=== PATIENT | male | born 1950 | race Caucasian/White ===

== ENCOUNTER 2019-03-22 14:05 | Emergency (ER) | payer OTHER ==
--- NOTE | 2019-03-22 14:40 | EDM.PDOC ---
ED HPI GENERAL MEDICAL PROBLEM - General Chief Complaint: Gastrointestinal Problem Stated Complaint: hematachizea Time Seen by Provider: 03/22/19 14:19 Source of Information: Reports: Patient, Old Records, RN History Limitations: Reports: No Limitations - History of Present Illness INITIAL COMMENTS - FREE TEXT/NARRATIVE: 68 yr male presents with blood to stool States he had a colonoscopy the end of january because of this same problem and Dr Alvarez's notes show multiple non-bleeding colonic angiodysplastic lesions, treated wtih APC. Recommend repeat colonoscopy adn Argon plasma coagulation if rectal bleeding starts again. Pt contacted the [facility] clinic/offic for Dr Alvarez and was told the provider is out of the office until the end of March. Was told to report to the nearest ER for a referral for this. Pt is alert and talkative, eating well, no nausea, no dizziness, no lightheadedness, no shortness of breath and no chest pain. Hx of Malignant neoplasm of prostaten 2003: stable ( radiation finished last year in April), and hypertension controlled with medication, diverticular disease 2007 and underwent colon resection, colovesical fistula and previous heavy use of NSAID ( not using anymore). He has had previous provider appointments in [facility] and would like a referral for this blood to the stool for [facility] Kindly refer to pt notes in [place], [place] files for the colonoscopy and plan per Dr Alvarez. ED ROS GENERAL - Review of Systems Review Of Systems: See Below Constitutional: Reports: No Symptoms HEENT: Reports: Glasses Respiratory: Reports: No Symptoms Cardiovascular: Reports: No Symptoms GI/Abdominal: Reports: Bloody Stool, Hematochezia, Melena. Denies: Abdominal Pain, Constipation, Nausea, Vomiting : Reports: Other (hx of prostate cancer) Musculoskeletal: Reports: No Symptoms Skin: Reports: No Symptoms Neurological: Reports: No Symptoms ED EXAM, GI/ABD - Physical Exam Exam: See Below Exam Limited By: No Limitations General Appearance: Alert, No Apparent Distress Ears: Hearing Grossly Normal Nose: Normal Inspection, Normal Mucosa Throat/Mouth: Normal Inspection, Normal Voice, No Airway Compromise Head: Atraumatic, Normocephalic Neck: Normal Inspection, Supple, Non-Tender, Full Range of Motion Respiratory/Chest: No Respiratory Distress, Lungs Clear, Normal Breath Sounds Cardiovascular: Normal Peripheral Pulses, Regular Rate, Rhythm, No Edema GI/Abdominal Exam: Normal Bowel Sounds, Soft, Non-Tender. No: Guarding, Tender , Mass Back Exam: Normal Inspection, Full Range of Motion Extremities: Normal Inspection, Normal Range of Motion, Normal Capillary Refill Neurological: Alert, Oriented, Normal Cognition Psychiatric: Normal Affect, Normal Mood Skin Exam: Warm, Dry, Normal Color Lymphatic: No Adenopathy Course - Orders/Labs/Meds Labs: Laboratory Tests 03/22/19 03/22/19 Range/Units 14:30 14:30 WBC 5.0 (4.0-11.0) K/uL RBC 4.81 (4.50-6.50) M/uL Hgb 15.5 (13.0-18.0) g/dL Hct 44.1 (40.0-54.0) % MCV 92 (76-96) fL MCH 32.2 H (27.0-32.0) pg MCHC 35.1 H (31.0-35.0) g/dL RDW 12.4 (11.0-16.0) % Plt Count 152 (150-400) K/uL MPV 9.6 (6.0-10.0) fL Neut % (Auto) 58.6 (45.0-70.0) % Lymph % (Auto) 23.1 (20.0-40.0) % Randolph % (Auto) 14.9 H (3.0-10.0) % Eos % (Auto) 3.0 (1.0-5.0) % Baso % (Auto) 0.4 (0.0-0.5) % Neut # (Auto) 2.94 (2.00-7.50) K/uL Lymph # (Auto) 1.16 L (1.50-4.00) K/uL Randolph # (Auto) 0.75 (0.20-0.80) K/uL Eos # (Auto) 0.15 (0.04-0.40) K/uL Baso # (Auto) 0.02 (0.02-0.10) K/uL Sodium 139 (136-145) mmol/L Potassium 3.7 (3.5-5.1) mmol/L Chloride 101 (98-107) mmol/L Carbon Dioxide 25.5 (21.0-32.0) mmol/L Anion Gap 16.2 H (5.0-15.0) mmol/L BUN 10 (8-26) mg/dL Creatinine 1.07 (0.70-1.30) mg/dL Est Cr Clr Drug Dosing TNP Estimated GFR (MDRD) > 60 (>60) MLS/MIN BUN/Creatinine Ratio 9.3 (6-25) Glucose 117 H (74-100) mg/dL Calcium 8.8 (8.5-10.1) mg/dL Total Bilirubin 0.4 (0.0-1.0) mg/dL AST 24 (15-37) U/L ALT 27 (12-78) U/L Alkaline Phosphatase 81 (46-116) U/L Total Protein 7.6 (6.4-8.2) g/dL Albumin 3.9 (3.4-5.0) g/dL Globulin 3.7 (2.2-4.2) g/dL Albumin/Globulin Ratio 1.1 (0.8-2.0) - Re-Assessments/Exams Free Text/Narrative Re-Assessment/Exam: 03/22/19 15:35 Labs completed for CBC and BMP. No leukocytosis and no anemia noted. No electrolyte imbalance, labs noncontributory. Contact [facility] to set-up a referral and fax number received to send referral data. Will discharge pt with referral to [facility]. Recommend rest for the remainder of day and up in home. Recommend adequate fluids and MIKE to prevent dehydration. Monitor closely for any increase of symptoms of continued blood to stool, shortness of breath, fever or light headedness, or nausea/ vomitting. Continue medications as at home. No ASA and no NSAIDS. Referral will be faxed to [facility], Kindly refer to notes from [facility]. Provider office told pt he is out of the office until late March and should get a referral to another GI provider for the colonoscopy. Departure - Departure Time of Disposition: 15:41 Disposition: Home, Self-Care 01 Condition: Good Clinical Impression: Melena, Hematochezia - Discharge Information *PRESCRIPTION DRUG MONITORING PROGRAM REVIEWED*: Not Applicable *COPY OF PRESCRIPTION DRUG MONITORING REPORT IN PATIENT TALIA: Not Applicable Referrals: PCP,None [Primary Care Provider] - Forms: ED Department Discharge - Assessment/Plan Plan: Labs completed for CBC and BMP. No leukocytosis and no anemia noted. No electrolyte imbalance, labs noncontributory. Contact [facility] to set-up a referral and fax number received to send referral data. Will discharge pt with referral to [facility]. Recommend rest for the remainder of day and up in home. Recommend adequate fluids and MIKE to prevent dehydration. Monitor closely for any increase of symptoms of continued blood to stool, shortness of breath, fever or light headedness, or nausea/vomitting. Continue medications as at home. No ASA and no NSAIDS. Referral will be faxed to [facility], Kindly refer to notes from [facility]. Provider office told pt he is out of the office until late March and should get a referral to another GI provider for the colonoscopy.
== END 2019-03-22 15:49 | disposition home or self-care (01) ==
LOC: LB.ED 14:05
DX: K92.1 Melena (principal)
CPT/HCPCS: 36415; 80053; 85025; 99283; 99284

== ENCOUNTER 2024-03-15 22:29 | Emergency (ER) | payer OTHER, MEDICARE ==
[2024-03-15] MEDS ORDERED: HYDROmorphone 2 MG/ML Syringe ONE (22:58)
[2024-03-15] MEDS: HYDROmorphone 2 MG/ML Syringe IM ONE (23:07)
[2024-03-15 23:17] LABS: BASOPHILS ABSOLUTE AUTO 0.03 K/uL (0.02-0.10); BASOPHILS PERCENT AUTO 0.5 % (0.0-0.5); EOSINOPHILS ABSOLUTE AUTO 0.15 K/uL (0.04-0.40); EOSINOPHILS PERCENT AUTO 2.4 % (1.0-5.0); HEMATOCRIT 44.8 % (40.0-54.0); HEMOGLOBIN 15.5 g/dL (13.0-18.0); LYMPHOCYTES ABSOLUTE AUTO 1.56 K/uL (1.50-4.00); LYMPHOCYTES PERCENT AUTO 25.3 % (20.0-40.0); MEAN CORPUSCULAR HEMOGLOBIN 32.8 pg (27.0-32.0); MEAN CORPUSCULAR HGB CONC 34.6 g/dL (31.0-35.0); MEAN CORPUSCULAR VOLUME 95 fL (76-96); MEAN PLATELET VOLUME 9.2 fL (6.0-10.0); MONOCYTES ABSOLUTE AUTO 1.01 K/uL (0.20-0.80); MONOCYTES PERCENT AUTO 16.4 % (3.0-10.0); NEUTROPHILS ABSOLUTE AUTO 3.42 K/uL (2.00-7.50); NEUTROPHILS PERCENT AUTO 55.4 % (45.0-70.0); PLATELET COUNT,PLT 141 K/uL (150-400); RED BLOOD CELL COUNT 4.73 M/uL (4.50-6.50); RED CELL DISTRIBUTION WIDTH 11.9 % (11.0-16.0); WHITE BLOOD CELL COUNT,WBC 6.2 K/uL (4.0-11.0)
[2024-03-15] MEDS ORDERED: Sodium Chloride 0.9% 10 ML Syringe FLUSH PRN (23:32)
[2024-03-15 23:34] LABS: A/G RATIO 1.4 (0.8-2.0); ANION GAP 13.5 mmol/L (5.0-15.0); BILIRUBIN TOTAL 0.6 mg/dL (0.0-1.0); BUN/CREATININE RATIO 16.1 (6-25); CALCIUM 8.8 mg/dL (8.5-10.1); CARBON DIOXIDE,CO2 28.7 mmol/L (21.0-32.0); CREATININE 1.18 mg/dL (0.70-1.30); EST CRCL DRUG DOSING (CG) 55.85 mL/min; POTASSIUM,K 4.2 mmol/L (3.5-5.1); PROTEIN TOTAL,TP 6.8 g/dL (6.4-8.2); TROPONIN I HIGH SENSITIVITY 5.4 pg/ml (<=60.4)
[2024-03-15] MEDS: Metoprolol Tartrate 5 MG/5 ML SDV IVPUSH ONE (23:38)
[2024-03-15] MEDS: Metoprolol Tartrate 5 MG/5 ML SDV ONE (23:48)
[2024-03-15] MEDS: Metoprolol Tartrate 5 MG in Sodium Chloride 0.9% 50 ML IV ONE (23:48)
[2024-03-15] MEDS: Lisinopril 10 MG Tab PO ONE (23:55)
[2024-03-16] MEDS: Lisinopril 10 MG Tab ONE
== END 2024-03-16 01:00 | disposition home or self-care (01) ==
LOC: LB.ED 22:29
DX: I10 Essential (primary) hypertension (principal); M25.532 Pain in left wrist; Z79.899 Other long term (current) drug therapy
CPT/HCPCS: 36415; 80053; 84484; 85025; 93005; 96372; 96374; 99283; A9270; J1170; J3490; 93010